=== PATIENT | male | born 1970 ===

== ENCOUNTER 2023-10-13 12:52 | Outpatient (POV) | payer OTHER, SELFPAY ==
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
[2023-10-13 13:08] VITALS: BP 180/100; PULSE 78; RESP 18; O2SAT 98; BMI 25.7
== END 2023-10-13 23:59 ==
LOC: SC.PAIN 12:57
PROVIDERS: Visit Provider Nurse Practitioner Family
DX: M51.16 Intervertebral disc disorders with radiculopathy, lumbar region (principal); M25.551 Pain in right hip; M25.552 Pain in left hip; M25.561 Pain in right knee; G89.29 Other chronic pain
CPT/HCPCS: 99202; G0463